=== PATIENT | male | born 1945 | race Caucasian/White ===

== ENCOUNTER 2025-05-01 12:59 | Emergency (ER) | payer OTHER, SELFPAY ==
[2025-05-01 13:05] VITALS: BP 150/77
[2025-05-01 13:24] LABS: Hematocrit 32.0 % (39.0-52.0); Hemoglobin 10.6 g/dL (13.0-18.0); Mean Corp Hgb Conc. 33.1 g/dL (33.0-37.0); Mean Corpuscular Volume 90.9 fL (80.0-94.0); Nucleated Red Blood Cells % 0 % (-); Platelet Count 190 10^3/uL (130-400); Red Cell Dist. Width 13.6 % (11.5-14.5)
[2025-05-01 13:45] LABS: ALT (SGPT) 14 U/L (0-50); AST (SGOT) 21 U/L (17-59); Albumin 4.0 g/dl (3.5-5.0); Alkaline Phosphatase 43 U/L (38-126); Blood Urea Nitrogen 24 mg/dl (9-20); Calcium 9.2 mg/dl (8.4-10.2); Carbon Dioxide 25 mmol/L (22-30); Chloride 105 mmol/L (98-107); Glucose 95 mg/dl (70-99); Lipase 71 U/L (23-300); Potassium 5.5 mmol/L (3.5-5.1); Sodium 136 mmol/L (135-145); Total Protein 6.5 g/dl (6.3-8.2); eGFR 50.81
[2025-05-01 16:49] VITALS: BMI 25.5
[2025-05-01] MEDS: NSS 500 IV (16:56)
[2025-05-01 16:58] VITALS: BP 122/58
[2025-05-01 17:00] VITALS: BP 146/58
--- NOTE | 2025-05-01 17:03 | ED.GENMED ---
History of Present Illness
General
Chief Complaint: Abdominal Pain
Source: patient and spouse
Exam Limitations: none
Time Seen by Provider: 05/01/25 16:19
Nursing documentation reviewed up to this point in time: agreed with
History of Present Illness
History of Present Illness:
Patient presents to ED secondary to worsening lower abdominal pain over the past 3 days. Abdominal pain described as pressure, worse with movement, minimal at rest. Denies vomiting or diarrhea. Denies fever or chills. Denies trauma. Denies
difficulty with urination. Denies recent change in medications or diet. Denies previous history of similar symptoms.
Past History
Past History
ED Past Surgical History: Orthopedic, Urological and Other (Hernia repair)
Social History
Tobacco: Non-smoker
Alcohol: None
Drug: None
Personal:
Living: with family
Employment: Retired
Review of Systems
Review of Systems
Allergies reviewed?: Yes
All Other Systems: ROS reviewed and negative except as documented in HPI and ROS
Constitutional: Reports no symptoms; Denies fever
Respiratory: Reports no symptoms
Cardiac: Reports no symptoms
ABD/GI: Reports abdominal pain; Denies vomiting or diarrhea
: Reports no symptoms
Musculoskeletal: Reports no symptoms
Skin: Reports no symptoms
Neurological: Reports no symptoms
Phy Exam
Physical Exam
Physical Exam:
Physical Exam
General: mild distress, not acutely ill. afebrile
Head: nc/at. eomi
Neck: supple. no meningeal signs.
Heart: s1/s2 regular rate and rhythm
Lungs: no acute respiratory distress. clear bilaterally
Abdomen: normal bowel sounds. mild RLQ tenderness to palpation. rectal exam: soft, brown stool, heme negative.
Neuro: alert and oriented x 3. no focal neurological deficits
Skin: no rash
Psychiatric: well kept. interactive and cooperative
Extremities: no edema. no calf tenderness
Course
Orders/Labs/Results
Orders:
Orders
05/01/25 13:15
Complete Blood Count/With Diff Urgent
Comprehensive Metabolic Panel Urgent
Lipase Urgent
05/01/25 16:40
CT Abd/pelvis W Iv Cont Urgent
Comment:
Reason For Exam: RLQ pain
0.9% Sodium Chloride 500 ml [Nss] 500 ml IV BOLUS
Abnormal Lab Results
05/01/25
13:15
RBC 3.52 L 10^6/uL
(4.70-6.10)
Hgb 10.6 L g/dL
(13.0-18.0)
Hct 32.0 L %
(39.0-52.0)
Potassium 5.5 H mmol/L
(3.5-5.1)
BUN 24 H mg/dl
(9-20)
Creatinine 1.4 H mg/dL
(0.7-1.3)
05/01/25 13:15
05/01/25 13:15
Vital Signs
Initial and Last Documented VS:
Initial Vital Signs
Temp Pulse Resp BP Pulse Ox
97.7 F 74 18 150/77 99
05/01/25 13:05 05/01/25 13:05 05/01/25 13:05 05/01/25 13:05 05/01/25 13:05
Last Documented Vital Signs
Temp Pulse Resp BP Pulse Ox
97.7 F 65 16 156/62 98
05/01/25 13:05 05/01/25 17:03 05/01/25 17:03 05/01/25 19:00 05/01/25 19:30
MDM/Problems Addressed
MDM/Problems Addressed:
Patient with an unremarkable workup in ED, including blood work and CT abdomen pelvis. Discussed CT abdomen pelvis result with patient and spouse. Discussed continuing bowel regimen as an outpatient, along with GI follow-up. Advised to return to
ED with worsening symptoms, i.e. fever/worsening pain/vomiting. Patient and spouse expressed understanding at time of discharge.
*Pulse Oximetry
SaO2: 97
Oxygen Mode of Delivery: Room air
Patient hypoxic: no
*Critical Care Note
Total Time (30-74mins, 75-104mins- exclusive of procedures): Not Applicable
ED Attending Note
-
Portions of this chart may have been created with voice recognition software.� Occasional wrong word or��sound alike� substitutions may have occurred due to the inherent limitations of voice recognition software.
Discharge Plan
Departure
Patient Disposition: Home (Routine Discharge)
Date of Disposition: 05/01/25
Time of Disposition: 19:44
Patient with high blood pressure during this ER visit?: Yes
Discharge Problem:
Abdominal pain
Instructions: Constipation, Adult (DC), Abdominal Pain
Prescriptions:
No Action
metformin 500 mg Tablet
500 mg PO BID
acetaminophen [Tylenol] 325 mg Tablet
325 mg PO BID
carvedilol 6.25 mg Tablet
6.25 mg PO BID
atorvastatin [Lipitor] 20 mg Tablet
20 mg PO DAILY
clindamycin HCl 300 mg Capsule
300 mg PO Q12H PRN (Reason: prior to dental work)
polyethylene glycol 3350 [Miralax] 17 gram Powder In Packet
17 g PO PRN PRN (Reason: constipation)
valsartan 80 mg Tablet
80 mg PO DAILY
tramadol 50 mg Tablet
50 mg PO BID PRN (Reason: discomfort)
metoclopramide HCl 5 mg Tablet
5 mg PO PRN PRN (Reason: nausea)
lansoprazole 30 mg Capsule,Delayed Release(Dr/Ec)
30 mg PO BID
gabapentin 100 mg Capsule
100 mg PO BID
dicyclomine 10 mg Capsule
10 mg PO TID
solifenacin 10 mg Tablet
10 mg PO DAILY
fenofibrate nanocrystallized 145 mg Tablet
145 mg PO DAILY
magnesium oxide 400 mg magnesium Tablet
400 mg PO DAILY
vitamin F82-kodef acid
1,000 mcg PO DAILY
tramadol 50 mg tablet
50 mg PO Q6HPRN PRN (Reason: severe pain/breakthrough pain) Qty: 10 0RF
Referrals:
Esther Berry MD [Active, Gastroenterology]
Ruth Shepard MD [Family Provider]
Activity Restrictions/Additional Instructions:
As discussed, please follow-up with your primary care physician and/or referred GI physician for further evaluation and treatment. Please consider return to ED with worsening symptoms, i.e. fever/worsening pain/vomiting.
Interventions
Interventions:
*Risk Screen - Suicide Last Done: 05/01/25 13:05
*General Assessment Last Done: 05/01/25 16:49
*Neglect/Abuse Screening Last Done: 05/01/25 16:49
*ED- Fall Risk Assessment Last Done: 05/01/25 16:49
*ED COVID-19 Vaccine History Last Done: 05/01/25 16:49
*Nursing Disposition Last Done: 05/01/25 20:16
LZ-Auqzoi-Rlgjxxehjh Assessment Last Done: 05/01/25 16:57
Discharge Date and Time
Discharge Date/Time: 05/01/25 20:17
Print Language: PORTUGUESE
[2025-05-01 18:00] VITALS: BP 158/53
[2025-05-01 19:00] VITALS: BP 156/62
== END 2025-05-01 20:17 | disposition home or self-care (01) ==
LOC: EMR 12:59
PROVIDERS: Student in an Organized Health Care Education/Training Program; EMERGENCY PHYSICIAN Emergency Medicine; FAMILY PHYSICIAN Family Medicine
DX: R10.31 Right lower quadrant pain (principal)
CPT/HCPCS: 99284; 96360; 74177; 80053; 83690; 85025; Q9967